=== PATIENT | female | born 1970 ===

== ENCOUNTER → 2017-08-04 | Outpatient (CLI) | payer BC ==
[~2017-08-04] MED LIST: GADAVIST IV PRN
--- NOTE | 2017-08-04 12:48 | DIAGNOSTIC IMAGING REPORT ---
BRAIN COMBO FOR MS HISTORY: Mental status change MS TECHNIQUE: Multiplanar multisequence MRI of the brain was performed both before and after the intravenous administration of contrast. COMPARISON STUDY: 08/26/2016 FINDINGS: Multiple foci of increased signal within the periventricular and deep white matter regions. These are unchanged in size number and or configuration compared to the prior study. A diffusion-weighted images show no evidence for an acute ischemic insult. Ventricular system is midline. Postcontrast images are considered negative for an enhancing lesion. There is suggestion transaxial image 7 of a focus of enhancement of the mid valentin. This is not seen currently and is presumed to be artifactual. Ventricular system is midline. There is no evidence for midline shift. IMPRESSION: 1. Multiple findings throughout both cerebral hemispheres consistent with plaques of demyelination. 2. These are unchanged and stable compared to the prior study. 3. No evidence for new interval or progressive process. 4. No evidence for postcontrast enhancement. 5. This study is unchanged compared to the prior exam and is consistent with a stable demyelinating disorder The above report was generated using voice recognition software. It may contain grammatical, syntax or spelling errors. Electronically signed by: Hermes Herrera M.D. 08/04/2017 12:47 PM Dictated Date/Time: 08/04/2017 12:42 PM
== END | disposition home or self-care (01) ==
LOC: C.MRIBC 11:17
PROVIDERS: ATTEND Psychiatry & Neurology Neurology
DX: G35 Multiple sclerosis (principal)